=== PATIENT | male | born 2000 | race Two or more races ===

== ENCOUNTER 2022-07-30 09:04 | Inpatient (IN) | payer OTHER ==
[~2022-07-30] VITALS: Ht 190.5 cm; Wt 123.6 kg
[2022-07-30] MEDS ORDERED: PANTOPRAZOLE 40 MG TAB PO ONE (09:45)
[2022-07-30] MEDS ORDERED: ONDANSETRON ODT 4 MG TAB PO ONE (09:45)
[2022-07-30 10:09] LABS: Basophils # (auto) 0 10 ^3/uL (0-0.2); Basophils % (auto) 0.2 % (0.0-2.0); Eosinophils # (auto) 0 10 ^3/uL (0-0.8); Eosinophils % (auto) 0.1 % (0.0-7.0); Hematocrit 44.3 % (41.0-53.0); Lymphocytes # (auto) 1.1 10 ^3/uL (0.4-5.4); Lymphocytes % (auto) 6.4 % (10.0-50.0); Mean Corpuscular Hemoglobin 27.7 pg (28.0-32.0); Mean Corpuscular Hgb Conc. 33.9 g/dL (32.0-36.0); Mean Corpuscular Volume 81.7 fL (80.0-100.0); Monocytes # (auto) 0.9 10 ^3/uL (0-1.3); Monocytes % (auto) 5.4 % (0.0-12.0); Neutrophils # (auto) 14.7 10 ^3/uL (1.6-8.6); Neutrophils % (auto) 87.9 % (37.0-80.0); Red Blood Cells 5.42 10^6/uL (4.5-5.90); Red Cell Distribution Width 14.1 % (11.8-14.3); White Blood Cell 16.7 10^3/uL (4.4-10.8)
[2022-07-30 10:24] LABS: Albumin 3.9 g/dL (3.4-5.0); Potassium 4.6 mmol/L (3.5-5.1)
[2022-07-30 10:26] LABS: Urine Bacteria NONE SEEN /hpf (None Seen); Urine WBC <1 /hpf (0 - 3)
[2022-07-30 10:28] LABS: BUN/Creatinine Ratio 6.8; Bilirubin, Total 0.3 mg/dL (0.2-1.0); Calcium 9.2 mg/dL (8.5-10.1); Total Protein 7.1 g/dL (6.4-8.2)
[2022-07-30 10:36] LABS: Urine Blood Normal /uL (Negative)
[2022-07-30] MEDS ORDERED: SODIUM CHLORIDE 0.9% 1,000 ML IV ONE (10:45)
[2022-07-30] MEDS ORDERED: MORPHINE SULFATE 4 MG/ML SYR/VIAL IV ONE (10:45)
[2022-07-30] MEDS ORDERED: MORPHINE SULFATE INJ 2 MG/ml SYRG IV PRN (12:45)
[2022-07-30] MEDS ORDERED: ONDANSETRON HCL 4 MG/2 ML VIAL IV PRN (12:45)
[2022-07-30 13:17] LABS: Alcohol, Urine < 3.0 mg/dL (0-10); Amphetamine Screen, Urine NEGATIVE (NEGATIVE); Barbiturate Scree,Urine NEGATIVE (NEGATIVE); Benzodiazephine Screen, Urine NEGATIVE (NEGATIVE); Cannabinoid Screen, Urine NEGATIVE (NEGATIVE); Cocaine Screen, Urine NEGATIVE (NEGATIVE); Opiate Scree,Urine NEGATIVE (NEGATIVE); Phencyclidine Screen, Urine NEGATIVE (NEGATIVE)
[2022-07-30] MEDS: cefOXitin 2GM/100ML 100 ML IV SCH ×2 (16:13→22:20)
[2022-07-30] MEDS: SODIUM CHLORIDE 0.9% 1,000 ML IV SCH ×2 (18:22→21:05)
[2022-07-30 22:00] VITALS: BP 129/76
[2022-07-30 23:39] VITALS: BP 129/76
[2022-07-31 05:00] VITALS: BP 117/70
[2022-07-31] MEDS: SODIUM CHLORIDE 0.9% 1,000 ML IV SCH ×3 (05:25→22:13)
[2022-07-31 06:05] LABS: Basophils # (auto) 0.1 10 ^3/uL (0-0.2); Basophils % (auto) 0.4 % (0.0-2.0); Eosinophils # (auto) 0 10 ^3/uL (0-0.8); Eosinophils % (auto) 0.3 % (0.0-7.0); Hematocrit 42.4 % (41.0-53.0); Hemoglobin 14.5 g/dL (13.5-17.5); Lymphocytes % (auto) 11.3 % (10.0-50.0); Mean Corpuscular Hemoglobin 27.6 pg (28.0-32.0); Mean Corpuscular Hgb Conc. 34.1 g/dL (32.0-36.0); Mean Corpuscular Volume 80.8 fL (80.0-100.0); Monocytes % (auto) 11.4 % (0.0-12.0); Neutrophils # (auto) 13.5 10 ^3/uL (1.6-8.6); Neutrophils % (auto) 76.6 % (37.0-80.0); Red Blood Cells 5.24 10^6/uL (4.5-5.90); Red Cell Distribution Width 13.8 % (11.8-14.3); White Blood Cell 17.6 10^3/uL (4.4-10.8)
[2022-07-31] MEDS: cefOXitin 2GM/100ML 100 ML IV SCH ×3 (06:17→22:13)
[2022-07-31 06:27] LABS: Albumin 3.4 g/dL (3.4-5.0); BUN/Creatinine Ratio 7.8; Calcium 9.1 mg/dL (8.5-10.1); Potassium 3.9 mmol/L (3.5-5.1)
[2022-07-31 06:29] LABS: Total Protein 6.2 g/dL (6.4-8.2)
[2022-07-31 08:15] VITALS: BP 104/71
[2022-07-31 09:00] VITALS: BP 104/71
[2022-07-31] MEDS ORDERED: SUCCINYLCHOLINE CHLORIDE 20 MG/ML 10ML VIAL IV ONE (09:47)
[2022-07-31] MEDS ORDERED: fentaNYL CITRATE 100 MCG/2 ML VL ONE (09:50)
[2022-07-31] MEDS ORDERED: MIDAZOLAM HCL 2MG/2ML 2ml VIAL (1mg/ml) ONE (09:50)
[2022-07-31] MEDS ORDERED: ROCURONIUM 10MG/ML 10ML VIAL IV ONE (09:50)
[2022-07-31] MEDS ORDERED: PROPOFOL 10 MG/ML 20 ML IV ONE (09:52)
[2022-07-31 09:57] LABS: INR 1.07 (0.9-1.15); Partial Thromboplastin Time 28.1 sec (24.6-33.4)
[2022-07-31] MEDS: PANTOPRAZOLE 40 MG/10 ML VIAL INJ IV SCH (10:00)
[2022-07-31] MEDS ORDERED: HYDROmorphone HCL 2 MG/ML VL/or syr ONE ×2 (10:33→11:50)
[2022-07-31] MEDS ORDERED: GLYCOPYRROLATE 0.2 MG/ML 1ML VIAL ONE (11:11)
[2022-07-31] MEDS ORDERED: NEOSTIGMINE 1 MG/ML INJ (10mg/10ML VIAL) ONE (11:11)
[2022-07-31] MEDS ORDERED: NALOXONE HCL 0.4 MG/ML VIAL ONE (11:21)
[2022-07-31] MEDS ORDERED: HYDROmorphone HCL 2 MG/ML VL/or syr IV PRN ×2 (13:15)
[2022-07-31] MEDS ORDERED: ONDANSETRON HCL 4 MG/2 ML VIAL IV PRN (13:15)
[2022-07-31] MEDS ORDERED: ONDANSETRON HCL 4 MG/2 ML VIAL IV ONE (14:10)
[2022-07-31 16:50] VITALS: BP 112/48
[2022-07-31 20:10] VITALS: BP 116/63
[2022-07-31 22:00] VITALS: BP 116/63
[2022-08-01 05:00] VITALS: BP 124/69
[2022-08-01] MEDS: cefOXitin 2GM/100ML 100 ML IV SCH ×3 (05:27→21:30)
[2022-08-01 06:34] LABS: Basophils # (auto) 0 10 ^3/uL (0-0.2); Basophils % (auto) 0.4 % (0.0-2.0); Eosinophils # (auto) 0.1 10 ^3/uL (0-0.8); Eosinophils % (auto) 0.7 % (0.0-7.0); Hematocrit 42.3 % (41.0-53.0); Hemoglobin 14.4 g/dL (13.5-17.5); Lymphocytes # (auto) 1.8 10 ^3/uL (0.4-5.4); Lymphocytes % (auto) 14.3 % (10.0-50.0); Mean Corpuscular Hemoglobin 27.9 pg (28.0-32.0); Mean Corpuscular Volume 82.2 fL (80.0-100.0); Monocytes # (auto) 1.3 10 ^3/uL (0-1.3); Monocytes % (auto) 10.4 % (0.0-12.0); Neutrophils # (auto) 9.5 10 ^3/uL (1.6-8.6); Neutrophils % (auto) 74.2 % (37.0-80.0); Red Blood Cells 5.15 10^6/uL (4.5-5.90); Red Cell Distribution Width 13.9 % (11.8-14.3); White Blood Cell 12.8 10^3/uL (4.4-10.8)
[2022-08-01] MEDS: SODIUM CHLORIDE 0.9% 1,000 ML IV SCH ×3 (06:43→23:45)
[2022-08-01 07:00] LABS: Calcium 8.6 mg/dL (8.5-10.1); Potassium 4.3 mmol/L (3.5-5.1)
[2022-08-01 07:03] LABS: BUN/Creatinine Ratio 5.8
[2022-08-01 09:00] VITALS: BP 129/77
[2022-08-01] MEDS: PANTOPRAZOLE 40 MG/10 ML VIAL INJ IV SCH (09:43)
[2022-08-01 13:00] VITALS: BP 110/67
[2022-08-01 16:30] VITALS: BP 125/65
[2022-08-01 20:00] VITALS: BP 117/72
[2022-08-01 22:00] VITALS: BP 117/72
[2022-08-02 05:02] VITALS: BP 120/72
[2022-08-02] MEDS: cefOXitin 2GM/100ML 100 ML IV SCH ×3 (05:55→21:50)
[2022-08-02] MEDS: SODIUM CHLORIDE 0.9% 1,000 ML IV SCH ×2 (06:01→18:15)
[2022-08-02 09:00] VITALS: BP 126/82
[2022-08-02] MEDS: PANTOPRAZOLE 40 MG/10 ML VIAL INJ IV SCH (09:14)
[2022-08-02 13:00] VITALS: BP 120/73
[2022-08-02 17:00] VITALS: BP 126/77
[2022-08-02 20:00] VITALS: BP 117/72
[2022-08-02 22:00] VITALS: BP 123/68
[2022-08-03] MEDS: SODIUM CHLORIDE 0.9% 1,000 ML IV SCH ×2 (00:05→08:32)
[2022-08-03 05:00] VITALS: BP 120/75
[2022-08-03] MEDS: cefOXitin 2GM/100ML 100 ML IV SCH (05:37)
[2022-08-03 08:30] VITALS: BP 119/79
[2022-08-03] MEDS: PANTOPRAZOLE 40 MG/10 ML VIAL INJ IV SCH (09:00)
[2022-08-03] MEDS ORDERED: DOCU-94 PO (11:23)
[2022-08-03] MEDS ORDERED: CEPH-510 PO (11:23)
[2022-08-03 11:54] VITALS: BP 119/79
== END 2022-08-03 12:30 | disposition home or self-care (01) | DRG 710 ==
LOC: ER 09:04 → OVERFLOW 12:45 → WEST WING 22:12
PROVIDERS: ADMIT Nurse Practitioner Family; ATTEND Internal Medicine
PROC: 0FT44ZZ Resection of Gallbladder, Percutaneous Endoscopic Approach (ICD-10-PCS; principal; 2022-07-31 09:48)
DX: A41.9 Sepsis, unspecified organism (principal); K80.00 Calculus of gallbladder with acute cholecystitis without obstruction; E86.0 Dehydration; Z20.822 Contact with and (suspected) exposure to COVID-19; R73.9 Hyperglycemia, unspecified; E66.9 Obesity, unspecified; Z68.34 Body mass index [BMI] 34.0-34.9, adult; Z82.5 Family history of asthma and other chronic lower respiratory diseases; Z91.013 Allergy to seafood
CPT/HCPCS: 36415; 74176; 76705; 80053; 80307; 81001; 82150; 83036; 83615; 83690; 85025; 85610; 85730; 86850; 86900; 86901; 87426; 96360; 96361; C9113; G0378; J0330; J0694; J2250; J2405; J2704

== ENCOUNTER 2022-08-05 22:10 | Emergency (ER) | payer OTHER ==
[~2022-08-05] VITALS: Ht 188 cm; Wt 113.0 kg
[~2022-08-05 22:10] MED LIST: CEPH-510 PO; DOCU-94 PO
[2022-08-05] MEDS ORDERED: CEPHALEXIN 250 MG CAP PO ONE (23:15)
[2022-08-05] MEDS ORDERED: OXYCODONE W/ ACETAMINOPHEN 5/325MG TABLET PO ONE (23:15)
[2022-08-06] MEDS ORDERED: CEPH-322 PO (00:06)
[2022-08-06] MEDS ORDERED: ONDA-144 PO (00:06)
[2022-08-06] MEDS ORDERED: PERCOT PO (00:06)
[2022-08-06 00:35] VITALS: BP 132/90
== END 2022-08-06 00:39 | disposition home or self-care (01) ==
LOC: ER 22:10
DX: L03.113 Cellulitis of right upper limb (principal); Z79.899 Other long term (current) drug therapy; Z91.013 Allergy to seafood